=== PATIENT | male | born 1980 | race Caucasian/White ===

== ENCOUNTER 2021-05-11 17:55 | Inpatient (IN) | payer OTHER ==
[~2021-05-11] VITALS: Ht 185.4 cm; Wt 81.8 kg
[~2021-05-11 17:55] MED LIST: EXCUSE; FENO145T GT; FENO145T PO; ISOP1TOW MC; LISI20TA24 PO; METF-446 PO; NPH,100V SQ; OMEP20CA12 PO; [UNRECOGNIZED DRUG - CODE] MC; [UNRECOGNIZED DRUG - SUPPLY] MC
[2021-05-11 18:30] LABS: BASOPHILS % (AUTO) 0.4 % (0.0-5.0); EOSINOPHILS % (AUTO) 2.1 % (0.0-8.0); HEMATOCRIT 42.8 % (42-54); LYMPHOCYTES % (AUTO) 14.4 % (21.0-51.0); MEAN CORPUSCULAR HEMOGLOBIN 29.7 pg (27.0-33.0); MEAN CORPUSCULAR HGB CONC 36.4 g/dL (32.0-36.0); MEAN CORPUSCULAR VOLUME 81.5 fL (79-99); MONOCYTES % (AUTO) 4.5 % (3.0-13.0); NEUTROPHILS % (AUTO) 78.1 % (40.0-77.0); PLATELET COUNT (AUTO) 285 K/uL (130-400); RED BLOOD CELL COUNT(AUTO) 5.25 MIL/uL (4.50-6.20); RED CELL DISTRIBUTION WIDTH 11.8 % (11.0-15.5); WHITE BLOOD COUNT (AUTO) 16.8 K/uL (4.8-10.8)
[2021-05-11] MEDS ORDERED: LIDOCAINE HCL 2% VISCOUS 15 ML UDCUP PO ONE (18:30)
[2021-05-11] MEDS ORDERED: FAMOTIDINE 20MG VIAL IV ONE (18:30)
[2021-05-11] MEDS ORDERED: ONDANSETRON 4MG INJ IVP ONE (18:30)
[2021-05-11] MEDS ORDERED: DICYCLOMINE HCL 10 MG/5 ML ML PO ONE (18:30)
[2021-05-11] MEDS ORDERED: MAG/ALUM/SIMETH 30 ML UDCUP PO ONE (18:30)
[2021-05-11 18:32] LABS: APPEARANCE,URINE Clear (CLEAR); BILIRUBIN,URINE Negative (NEGATIVE); COLOR,URINE Yellow (YELLOW); GLUCOSE, URINE (UA) Negative (NEGATIVE); KETONES,URINE Negative (NEGATIVE); LEUKOCYTE ESTERASE ,URINE Negative (NEGATIVE); NITRATE,URINE Negative (NEGATIVE); OCCULT BLOOD,URINE Negative (NEGATIVE); PH,URINE 6.5 (5.0-8.0); PROTEIN,URINE Negative (NEGATIVE); UROBILINOGEN,URINE 0.2 mg/dL (0.2-1.0)
[2021-05-11 18:46] LABS: CREATININE 0.7 mg/dL (0.5-1.5); POTASSIUM 3.9 mmol/L (3.5-5.1)
[2021-05-11 18:52] LABS: BILIRUBIN,TOTAL 0.9 mg/dL (0.2-1.0)
[2021-05-11] MEDS ORDERED: 0.9%NACL 1000ML 1,000 ML IV SCH (19:00)
[2021-05-11 19:08] LABS: TOTAL PROTEIN, SERUM 6.7 g/dL (6.0-8.3)
[2021-05-11] MEDS ORDERED: MORPHINE 2 MG SYG IV PRN (19:30)
[2021-05-11] MEDS ORDERED: ACETAMINOPHEN 325 MG TAB PO PRN (19:30)
[2021-05-11] MEDS ORDERED: ONDANSETRON 4MG INJ IV PRN (19:30)
[2021-05-11] MEDS ORDERED: INSULIN HUMULIN R 100 UNIT/ML 3ML IV ONE (20:00)
[2021-05-11] MEDS ORDERED: METRONIDAZOLE 500 MG TABLET PO SCH (20:00)
[2021-05-11] MEDS ORDERED: HYDROMORPHONE 0.5 MG SYG (0.5MG/0.5ML) IV PRN (20:00)
[2021-05-11 20:09] LABS: CHOLESTEROL 333 mg/dL (<200); HDL CHOLESTEROL 26 mg/dL (29-71); LDL DIRECT 78 mg/dL (0-99)
[2021-05-11 20:23] LABS: TRIGLYCERIDES 2146 mg/dL (30-200)
[2021-05-11] MEDS ORDERED: 0.9%NACL 50ML 50 ML IV ONE ×2 (20:39→22:58)
[2021-05-11] MEDS: FAMOTIDINE 20MG VIAL IV SCH (20:40)
[2021-05-11] MEDS: ZOSYN 3.375GM +NS 50ML IV SCH (20:41)
[2021-05-11] MEDS: LACTATED RINGERS 1000ML 1,000 ML IV SCH (20:52)
[2021-05-11 21:34] LABS: CREATININE 0.6 mg/dL (0.5-1.5); POTASSIUM 3.8 mmol/L (3.5-5.1)
[2021-05-11] MEDS ORDERED: POTASSIUM CHLORIDE 10MEQ/100ML 100 ML IV PRN (22:00)
[2021-05-11] MEDS ORDERED: INSULIN HUMULIN R 100 UNIT/ML 3ML ONE (22:57)
[2021-05-11] MEDS: INSULIN REGULAR, HUMAN 3ML 100 UNIT in 0.9%NACL 100ML 99 ML IV PRN ×2 (23:04)
[2021-05-11 23:41] LABS: CREATININE 0.7 mg/dL (0.5-1.5); MAGNESIUM 1.9 mg/dL (1.80-2.40); POTASSIUM 3.6 mmol/L (3.5-5.1)
[2021-05-12] VITALS (20 sets, daily range): BP systolic 120–158; BP diastolic 62–93
[2021-05-12] MEDS: DEXTROSE 5 % AND 0.9 % NACL 1,000 ML IV SCH ×5 (00:30→23:07)
[2021-05-12] MEDS: LACTATED RINGERS 1000ML 1,000 ML IV SCH ×7 (00:30→23:08)
[2021-05-12 03:13] LABS: CREATININE 0.8 mg/dL (0.5-1.5); HEMOGLOBIN A1C 9.9 % (4.0-6.0); MAGNESIUM 2.3 mg/dL (1.80-2.40); PHOSPHORUS 2.8 mg/dL (2.5-4.9); POTASSIUM 3.7 mmol/L (3.5-5.1)
[2021-05-12] MEDS ORDERED: 0.9%NACL 50ML 50 ML IV ONE (03:18)
[2021-05-12] MEDS ORDERED: ATOR40TA69 PO (04:16)
[2021-05-12] MEDS: ZOSYN 3.375GM +NS 50ML IV SCH ×3 (04:53→20:10)
[2021-05-12] MEDS: DEXTROSE 5 %-0.45 % NACL 1,000 ML IV PRN ×3 (07:44→23:06)
[2021-05-12 07:56] LABS: BASOPHILS % (AUTO) 0.4 % (0.0-5.0); EOSINOPHILS % (AUTO) 1.9 % (0.0-8.0); LYMPHOCYTES % (AUTO) 19.3 % (21.0-51.0); MEAN CORPUSCULAR HEMOGLOBIN 29.4 pg (27.0-33.0); MEAN CORPUSCULAR VOLUME 83.9 fL (79-99); NEUTROPHILS % (AUTO) 70.8 % (40.0-77.0); PLATELET COUNT (AUTO) 270 K/uL (130-400); RED BLOOD CELL COUNT(AUTO) 4.77 MIL/uL (4.50-6.20); WHITE BLOOD COUNT (AUTO) 11.6 K/uL (4.8-10.8)
[2021-05-12] MEDS ORDERED: KCL 20 MEQ ERTAB PO PRN (08:00)
[2021-05-12] MEDS ORDERED: POTASSIUM CHLORIDE 10% ELIXIR 20 MEQ/15 ML UDCUP PO PRN (08:00)
[2021-05-12] MEDS: FISH OIL 1000 MG/CAP PO SCH ×2 (08:25→20:11)
[2021-05-12] MEDS: GEMFIBROZIL 600 MG TABLET PO SCH ×2 (08:25→16:07)
[2021-05-12] MEDS: FAMOTIDINE 20MG VIAL IV SCH ×2 (08:25→20:10)
[2021-05-12] MEDS: ENOXAPARIN SODIUM 40 MG/0.4 ML SYRINGE SQ SCH (08:26)
[2021-05-12 08:37] LABS: CREATININE 0.8 mg/dL (0.5-1.5); MAGNESIUM 2.2 mg/dL (1.80-2.40); POTASSIUM 3.6 mmol/L (3.5-5.1)
[2021-05-12 11:18] LABS: CREATININE 0.8 mg/dL (0.5-1.5); POTASSIUM 3.7 mmol/L (3.5-5.1)
[2021-05-12 15:23] LABS: CREATININE 0.8 mg/dL (0.5-1.5); MAGNESIUM 2.2 mg/dL (1.80-2.40); POTASSIUM 4.4 mmol/L (3.5-5.1)
[2021-05-12] MEDS: INSULIN REGULAR, HUMAN 3ML 100 UNIT in 0.9%NACL 100ML 99 ML IV PRN ×2 (16:25)
[2021-05-12] MEDS ORDERED: GEMFIBROZIL 600 MG TABLET PO SCH (16:30)
[2021-05-12 18:43] LABS: CREATININE 0.8 mg/dL (0.5-1.5); POTASSIUM 4.8 mmol/L (3.5-5.1)
[2021-05-12] MEDS ORDERED: NIACIN 500 MG SRTAB PO SCH (21:00)
[2021-05-12 23:30] LABS: CREATININE 0.7 mg/dL (0.5-1.5); POTASSIUM 4.1 mmol/L (3.5-5.1)
[2021-05-13] VITALS (8 sets, daily range): BP systolic 125–146; BP diastolic 71–92
[2021-05-13] MEDS: ZOSYN 3.375GM +NS 50ML IV SCH (03:12)
[2021-05-13 03:40] LABS: HEMATOCRIT 38.5 % (42-54); MEAN CORPUSCULAR HEMOGLOBIN 28.6 pg (27.0-33.0); MEAN CORPUSCULAR HGB CONC 33.8 g/dL (32.0-36.0); MEAN CORPUSCULAR VOLUME 84.6 fL (79-99); RED BLOOD CELL COUNT(AUTO) 4.55 MIL/uL (4.50-6.20); RED CELL DISTRIBUTION WIDTH 12.4 % (11.0-15.5); WHITE BLOOD COUNT (AUTO) 6.4 K/uL (4.8-10.8)
[2021-05-13 03:56] LABS: CREATININE 0.8 mg/dL (0.5-1.5); POTASSIUM 4.4 mmol/L (3.5-5.1)
[2021-05-13] MEDS: FISH OIL 1000 MG/CAP PO SCH (08:49)
[2021-05-13] MEDS: GEMFIBROZIL 600 MG TABLET PO SCH (08:49)
[2021-05-13] MEDS: FAMOTIDINE 20MG VIAL IV SCH (08:49)
[2021-05-13] MEDS: ENOXAPARIN SODIUM 40 MG/0.4 ML SYRINGE SQ SCH (08:49)
[2021-05-13] MEDS: LACTATED RINGERS 1000ML 1,000 ML IV SCH (08:50)
[2021-05-13] MEDS: INSULIN HUMULIN R 100 UNIT/ML 3ML SQ SCH ×2 (08:54→11:30)
== END 2021-05-13 14:42 | disposition home or self-care (01) | DRG 439 ==
LOC: EDH 17:55 → EDHIP 19:26 → 3BH 22:09 → EDHIP 22:21 → 2BH 05-12 03:45
PROVIDERS: ADMIT Hospitalist; ATTEND Hospitalist
DX: K85.80 Other acute pancreatitis without necrosis or infection (principal); E87.1 Hypo-osmolality and hyponatremia; E78.00 Pure hypercholesterolemia, unspecified; E83.51 Hypocalcemia; E78.1 Pure hyperglyceridemia; I10 Essential (primary) hypertension; E78.5 Hyperlipidemia, unspecified; F17.210 Nicotine dependence, cigarettes, uncomplicated; E66.01 Morbid (severe) obesity due to excess calories; Z68.23 Body mass index [BMI] 23.0-23.9, adult; Z79.899 Other long term (current) drug therapy; Z79.84 Long term (current) use of oral hypoglycemic drugs; Z90.49 Acquired absence of other specified parts of digestive tract; Z82.3 Family history of stroke; Z83.3 Family history of diabetes mellitus; Z82.0 Family history of epilepsy and other diseases of the nervous system; Z82.5 Family history of asthma and other chronic lower respiratory diseases; Z82.49 Family history of ischemic heart disease and other diseases of the circulatory system; E11.65 Type 2 diabetes mellitus with hyperglycemia
CPT/HCPCS: 36415; 71045; 74176; 80048; 80053; 80061; 81003; 82010; 82948; 83036; 83690; 83735; 84100; 84478; 84484; 85025; 85027; 86140; 87040; 93005; G0378; J1170; J1650; J1815; J2405; J2543; J3490; J7042; J7120